=== PATIENT | female | born 1940 | race Caucasian/White ===

== ENCOUNTER 2017-12-31 14:30 | Inpatient (IN) | payer MEDICARE ==
[~2017-12-31] VITALS: Ht 152.4 cm; Wt 63.0 kg
[2017-12-31 15:35] LABS: BASOPHILS % (AUTO) 0.7 % (0.0-5.0); EOSINOPHILS % (AUTO) 3.2 % (0.0-8.0); LYMPHOCYTES % (AUTO) 22.4 % (21.0-51.0); MEAN CORPUSCULAR HGB CONC 33.7 g/dL (32.0-36.0); MEAN CORPUSCULAR VOLUME 89.1 fL (79-99); NEUTROPHILS % (AUTO) 64.7 % (40.0-77.0); PLATELET COUNT (AUTO) 316 K/uL (130-400); RED BLOOD CELL COUNT(AUTO) 3.26 MIL/uL (4.00-5.50); RED CELL DISTRIBUTION WIDTH 11.9 % (11.0-15.5); WHITE BLOOD COUNT (AUTO) 4.6 K/uL (4.8-10.8)
[2017-12-31 15:57] VITALS: BP 155/76
[2017-12-31 16:00] LABS: POTASSIUM 3.8 mmol/L (3.5-5.1)
[2017-12-31] MEDS ORDERED: CHOL400T4 PO (16:33)
[2017-12-31] MEDS ORDERED: FOLI1TAB15 PO (16:33)
[2017-12-31] MEDS ORDERED: FLUTICASONE NASAL (16:33)
[2017-12-31] MEDS ORDERED: IRBE150T27 PO (16:33)
[2017-12-31] MEDS ORDERED: OMEP40CA37 PO (16:33)
[2017-12-31] MEDS ORDERED: ALEN70TA47 PO (16:33)
[2017-12-31] MEDS ORDERED: ESTR0.755 PO (16:33)
[2017-12-31] MEDS ORDERED: FURO-152 PO (16:33)
[2017-12-31] MEDS ORDERED: CETI-101 PO (16:33)
[2017-12-31] MEDS ORDERED: [UNRECOGNIZED DRUG - MIXTURE] PO (16:33)
[2017-12-31] MEDS ORDERED: HYDR-3421 PO (16:33)
[2017-12-31] MEDS ORDERED: CEVI30CA7 PO (16:33)
[2017-12-31] MEDS ORDERED: FERS325 PO (16:33)
[2017-12-31] MEDS ORDERED: POLY17PO4 PO (16:33)
[2017-12-31] MEDS ORDERED: LEVO150T11 PO (16:33)
[2017-12-31] MEDS ORDERED: PENT1TAB3 PO (16:33)
[2018-01-01] MEDS: CEFAZOLIN SODIUM 1 GM VIAL IVP SCH (16:45)
[2018-01-02] MEDS: CEFAZOLIN SODIUM 1 GM VIAL IVP SCH (16:45)
[2018-01-03] VITALS (22 sets, daily range): BP systolic 119–153; BP diastolic 45–83
[2018-01-03] MEDS ORDERED: LIDOCAINE PF 2% 5ML ABBOJECT ONE (06:53)
[2018-01-03] MEDS ORDERED: PROPOFOL 10 MG/ML 20ML VIAL IV ONE ×2 (06:53→08:25)
[2018-01-03] MEDS ORDERED: FENTANYL CITRATE PF 50 MCG/1 ML 2ML VIAL ONE (06:54)
[2018-01-03] MEDS ORDERED: ONDANSETRON HCL 4 MG/2 ML VIAL ONE (06:54)
[2018-01-03] MEDS ORDERED: EPHEDRINE SULFATE 50 MG/ML AMPULE ONE (06:55)
[2018-01-03] MEDS ORDERED: ROCURONIUM 10MG/1ML SYR 10 MG/ML ML ONE (06:57)
[2018-01-03] MEDS ORDERED: FAMOTIDINE/PF 20 MG/2 ML VIAL IV ONE (07:05)
[2018-01-03] MEDS: CEFAZOLIN SODIUM 1 GM VIAL IVP SCH ×4 (07:30→23:41)
[2018-01-03] MEDS ORDERED: LACTATED RINGERS 1000ML 1,000 ML IV ONE (07:45)
[2018-01-03] MEDS ORDERED: CEFAZOLIN SODIUM 1 GM VIAL ONE (07:53)
[2018-01-03] MEDS ORDERED: ALBUMIN (HUMAN) 5% 250 ML IV ONE (08:04)
[2018-01-03] MEDS ORDERED: VASOPRESSIN 20 UNITS/ML 1ML VIAL ONE (08:04)
[2018-01-03] MEDS ORDERED: KETAMINE 50MG/ML SYRINGE 50 MG/ML DISP.SYRIN IV ONE (08:04)
[2018-01-03] MEDS ORDERED: BUPIVACAINE/PF 0.25% 50ML VIAL IJ ONE (09:02)
[2018-01-03] MEDS ORDERED: GLYCOPYRROLATE 1 MG/5 ML SYRINGE ONE (09:08)
[2018-01-03] MEDS: ACETAMINOPHEN EXTRA STRENGTH 500 MG TABLET PO SCH ×2 (09:30→17:24)
[2018-01-03] MEDS ORDERED: POTASSIUM CHLORIDE 20 MEQ ERTAB PO PRN (09:30)
[2018-01-03] MEDS ORDERED: DIPHENHYDRAMINE HCL 25 MG CAPSULE PO PRN (09:30)
[2018-01-03] MEDS ORDERED: POTASSIUM CHLORIDE 10% ELIXIR 20 MEQ/15 ML UDCUP PO PRN (09:30)
[2018-01-03] MEDS ORDERED: FERROUS FUMARATE 324 MG TABLET PO PRN (09:30)
[2018-01-03] MEDS ORDERED: POTASSIUM CHLORIDE 20MEQ/100ML 100 ML IV PRN (09:30)
[2018-01-03] MEDS ORDERED: TEMAZEPAM 15 MG CAPSULE PO PRN (09:30)
[2018-01-03] MEDS ORDERED: CALCIUM CARBONATE 500 MG TABLET PO PRN (09:30)
[2018-01-03] MEDS ORDERED: LIDOCAINE HCL-MPF 1% 2ML VIAL IVP PRN (09:30)
[2018-01-03] MEDS ORDERED: DiphenhydrAMINE HCL 50 MG/ML VIAL IVP PRN (09:30)
[2018-01-03] MEDS ORDERED: TRAMADOL HCL 50 MG TABLET PO PRN (09:30)
[2018-01-03] MEDS ORDERED: FLUTICASONE 50 MCG NASAL SCH (11:00)
[2018-01-03] MEDS ORDERED: NALOXONE HCL PO SCH (11:00)
[2018-01-03] MEDS ORDERED: HYDROXYZINE HCL 25 MG TABLET PO SCH (11:00)
[2018-01-03] MEDS ORDERED: PENTAZOCINE HCL PO SCH (11:00)
[2018-01-03] MEDS: PSYLLIUM SEED 1 EACH PACKET PO SCH (11:40)
[2018-01-03] MEDS: SODIUM CHLORIDE 0.9% 1000ML 1,000 ML IV SCH ×2 (11:40→20:14)
[2018-01-03] MEDS: KETOROLAC TROMETHAMINE 15MG/ML IV PRN ×2 (12:27→19:30)
[2018-01-03] MEDS: FERROUS SULFATE 325 MG TABLET.DR PO SCH (20:14)
[2018-01-03] MEDS ORDERED: ESTROPIPATE 0.75 MG PO SCH (21:00)
[2018-01-03] MEDS ORDERED: CEVIMELINE HCL 30 MG PO SCH (21:00)
[2018-01-03] MEDS ORDERED: NON-FORMULARY MEDICATION 1 EACH (Cetirizine HCl (Zyrtec) 10 MG) PO SCH (21:00)
[2018-01-04] MEDS: ACETAMINOPHEN EXTRA STRENGTH 500 MG TABLET PO SCH ×3 (02:06→18:24)
[2018-01-04 03:22] VITALS: BP 121/49
[2018-01-04] MEDS: SODIUM CHLORIDE 0.9% 1000ML 1,000 ML IV SCH (05:14)
[2018-01-04] MEDS: KETOROLAC TROMETHAMINE 15MG/ML IV PRN ×2 (06:17→13:04)
[2018-01-04] MEDS ORDERED: LEVOTHYROXINE 150 MCG TABLET PO SCH (06:30)
[2018-01-04] MEDS: FERROUS SULFATE 325 MG TABLET.DR PO SCH (07:56)
[2018-01-04 07:59] VITALS: BP 129/52
[2018-01-04] MEDS ORDERED: ENOXAPARIN SODIUM 40 MG/0.4 ML SYRINGE SQ SCH (09:00)
[2018-01-04] MEDS ORDERED: LOSARTAN 50 MG TABLET PO SCH (09:00)
[2018-01-04] MEDS ORDERED: POLYETHYLENE GLYCOL 3350 17 GM POWD.PACK PO SCH ×2 (09:00)
[2018-01-04] MEDS ORDERED: PANTOPRAZOLE SODIUM 40 MG TABLET.DR PO SCH (09:00)
[2018-01-04] MEDS ORDERED: FOLIC ACID 1 MG TABLET PO SCH (09:00)
[2018-01-04] MEDS ORDERED: FAMOTIDINE 20MG TAB 20 MG TAB PO SCH (09:00)
[2018-01-04] MEDS ORDERED: FUROSEMIDE 20 MG TABLET PO SCH (09:00)
[2018-01-04] MEDS ORDERED: CHOLECALCIFEROL 400 UNIT PO SCH (09:00)
[2018-01-04 11:41] VITALS: BP 128/57
[2018-01-04] MEDS: PSYLLIUM SEED 1 EACH PACKET PO SCH (12:43)
[2018-01-04 16:36] VITALS: BP 121/53
[2018-01-05] MEDS ORDERED: BISACODYL 5 MG TABLET.DR PO PRN (09:30)
[2018-01-06] MEDS ORDERED: BISACODYL 10 MG SUPP.RECT RC PRN (09:30)
[2018-01-10] MEDS ORDERED: ALENDRONATE SODIUM 35 MG TAB PO SCH (09:00)
== END 2018-01-04 20:00 | disposition home or self-care (01) | DRG 501 ==
LOC: EDSTATUS 14:30 → DAHIP 01-03 06:18 → 4AH 01-03 10:17
PROVIDERS: ADMIT Orthopaedic Surgery; ATTEND Orthopaedic Surgery
PROC: 0KCS0ZZ Extirpation of Matter from Right Lower Leg Muscle, Open Approach (ICD-10-PCS; principal; 2018-01-03 08:57)
DX: M79.81 Nontraumatic hematoma of soft tissue (principal); N18.4 Chronic kidney disease, stage 4 (severe); I10 Essential (primary) hypertension; E03.9 Hypothyroidism, unspecified; M06.9 Rheumatoid arthritis, unspecified; M19.90 Unspecified osteoarthritis, unspecified site; I73.9 Peripheral vascular disease, unspecified; Z88.1 Allergy status to other antibiotic agents; Z88.5 Allergy status to narcotic agent; Z88.8 Allergy status to other drugs, medicaments and biological substances; Z80.9 Family history of malignant neoplasm, unspecified
CPT/HCPCS: 36415; 80048; 85025; 93005; 97039; A4218; J0690; J1650; J1885; J2001; J2405; J2704; J3010; J3490; J7030; J7120; P9045

== ENCOUNTER → 2019-10-20 | Outpatient (CLI) | payer MEDICARE ==
[~2019-10-20] MED LIST: AMLO10TA7 PO; ASPI-1005 PO; CETI-109 PO; CEVI30CA7 PO; CHOL400T4 PO; DENO60DI SQ; ESTR0.755 PO; FERS325 PO; FLUTICASONE NASAL; FOLI1TAB15 PO; FURO20TA4 PO; HYDR-3421 PO; HYDR-4457 PO; IRBE150T24 PO; LEVO125 PO; OMEP40CA13 PO; PENT1TAB3 PO; POLY17PO4 PO; [UNRECOGNIZED DRUG - MIXTURE] PO; [UNRECOGNIZED DRUG - OTHER] PO
== END ==
LOC: DAH 10:00 → EDSTATUS 10-26 08:30 → DAH 10-26 10:00
PROVIDERS: ATTEND Internal Medicine Gastroenterology
DX: Z01.818 Encounter for other preprocedural examination (principal); Z11.59 Encounter for screening for other viral diseases; D50.0 Iron deficiency anemia secondary to blood loss (chronic); D53.9 Nutritional anemia, unspecified
CPT/HCPCS: 36415; U0003

== ENCOUNTER 2020-04-03 09:00 | Inpatient (IN) | payer MEDICARE ==
[~2020-04-03] VITALS: Ht 152.4 cm; Wt 59.7 kg
[~2020-04-03 09:00] MED LIST changes: +AMLO-258 PO; -AMLO10TA7 PO; -ASPI-1005 PO; -CETI-109 PO; -CHOL400T4 PO; -ESTR0.755 PO; -FLUTICASONE NASAL; -FURO20TA4 PO; -HYDR-3421 PO; -HYDR-4457 PO; -[UNRECOGNIZED DRUG - MIXTURE] PO; -[UNRECOGNIZED DRUG - OTHER] PO
[2020-04-03 10:51] LABS: BASOPHILS % (AUTO) 0.6 % (0.0-5.0); EOSINOPHILS % (AUTO) 2.1 % (0.0-8.0); HEMATOCRIT 32.4 % (36-48); LYMPHOCYTES % (AUTO) 12.3 % (21.0-51.0); MEAN CORPUSCULAR HEMOGLOBIN 30.3 pg (27.0-33.0); MEAN CORPUSCULAR HGB CONC 32.4 g/dL (32.0-36.0); MEAN CORPUSCULAR VOLUME 93.6 fL (79-99); MONOCYTES % (AUTO) 8.4 % (3.0-13.0); NEUTROPHILS % (AUTO) 76.2 % (40.0-77.0); PLATELET COUNT (AUTO) 245 K/uL (130-400); RED BLOOD CELL COUNT(AUTO) 3.46 MIL/uL (4.00-5.50); RED CELL DISTRIBUTION WIDTH 12.9 % (11.0-15.5); WHITE BLOOD COUNT (AUTO) 4.8 K/uL (4.8-10.8)
[2020-04-03 11:14] LABS: APPEARANCE,URINE Clear (CLEAR); BILIRUBIN,URINE Negative (NEGATIVE); COLOR,URINE Yellow (YELLOW); GLUCOSE, URINE (UA) Negative (NEGATIVE); KETONES,URINE Negative (NEGATIVE); LEUKOCYTE ESTERASE ,URINE Negative (NEGATIVE); NITRATE,URINE Negative (NEGATIVE); OCCULT BLOOD,URINE Negative (NEGATIVE); PH,URINE 7.5 (5.0-8.0); PROTEIN,URINE Trace mg/dL (NEGATIVE); UROBILINOGEN,URINE 0.2 mg/dL (0.2-1.0)
[2020-04-03 11:29] LABS: POTASSIUM 4.9 mmol/L (3.5-5.1)
[2020-04-03 11:49] LABS: INR 0.91 (0.85-1.15); PROTHROMBIN TIME 9.9 SEC (9.6-11.6)
[2020-04-03 12:14] LABS: BACTERIA,URINE Rare /HPF (None Seen); RBC,URINE None Seen /HPF (0-1); WBC,URINE None Seen /HPF (0-1)
[2020-04-09 15:09] VITALS: BP 170/58
[2020-04-09] MEDS ORDERED: VITAMIN D3 PO (15:50)
[2020-04-09] MEDS ORDERED: DYAZIDE GT (15:50)
[2020-04-09] MEDS ORDERED: LEVO5TAB13 PO (15:50)
[2020-04-09] MEDS ORDERED: ESTR0.5T PO (15:50)
[2020-04-09] MEDS ORDERED: PENTOXIFYLLINE PO (15:50)
[2020-04-09] MEDS ORDERED: FLUT16H NASAL (15:50)
[2020-04-10] VITALS (29 sets, daily range): BP systolic 112–156; BP diastolic 50–64
[2020-04-10] MEDS ORDERED: TRANEXAMIC ACID 1000MG/10ML ONE ×2 (07:48→12:36)
[2020-04-10] MEDS ORDERED: CEFAZOLIN SODIUM 1 GM VIAL ONE ×2 (07:48→15:53)
[2020-04-10] MEDS ORDERED: FENTANYL CITRATE PF 50 MCG/1 ML 2ML VIAL ONE (08:02)
[2020-04-10] MEDS ORDERED: ONDANSETRON HCL 4 MG/2 ML VIAL ONE (08:02)
[2020-04-10] MEDS ORDERED: MIDAZOLAM HCL 1 MG/ML 2ML VIAL ONE ×2 (08:02→12:28)
[2020-04-10] MEDS ORDERED: DEXAMETHASONE SOD PHOSPHATE 10MG/ML 1ML VIAL ONE (08:02)
[2020-04-10] MEDS ORDERED: LIDOCAINE PF 2% 5ML ABBOJECT ONE (08:02)
[2020-04-10] MEDS ORDERED: PROPOFOL 10 MG/ML 20ML VIAL IV ONE (08:02)
[2020-04-10] MEDS ORDERED: ROCURONIUM 10MG/1ML SYR 10 MG/ML ML ONE ×2 (08:03→10:47)
[2020-04-10] MEDS ORDERED: LACTATED RINGERS 1000ML 1,000 ML IV ONE (08:04)
[2020-04-10] MEDS ORDERED: ROPIVACAINE 0.5% 5MG/ML 30ML IJ ONE (08:10)
[2020-04-10] MEDS: CEFAZOLIN SODIUM 1 GM VIAL IVP SCH ×3 (08:30→15:54)
[2020-04-10] MEDS ORDERED: CEFAZOLIN SODIUM 1 GM VIAL IRRIG ONE (09:57)
[2020-04-10] MEDS ORDERED: EPHEDRINE SULFATE 50 MG/ML AMPULE ONE (11:44)
[2020-04-10] MEDS ORDERED: LIDOCAINE HCL-MPF 1% 2ML VIAL IV PRN (12:00)
[2020-04-10] MEDS ORDERED: OXYCODONE HCL 5 MG TAB PO PRN (12:00)
[2020-04-10] MEDS ORDERED: POTASSIUM CHLORIDE 20 MEQ ERTAB PO PRN (12:00)
[2020-04-10] MEDS ORDERED: TRAMADOL HCL 50 MG TABLET PO PRN (12:00)
[2020-04-10] MEDS ORDERED: ONDANSETRON HCL 4 MG/2 ML VIAL IVP PRN (12:00)
[2020-04-10] MEDS: ACETAMINOPHEN EXTRA STRENGTH 500 MG TABLET PO SCH ×2 (12:00→21:09)
[2020-04-10] MEDS ORDERED: CALCIUM CARBONATE 500 MG TABLET PO PRN (12:00)
[2020-04-10] MEDS ORDERED: POTASSIUM CHLORIDE 10% ELIXIR 20 MEQ/15 ML UDCUP PO PRN (12:00)
[2020-04-10] MEDS ORDERED: POTASSIUM CHLORIDE 20MEQ/100ML 100 ML IV PRN (12:00)
[2020-04-10] MEDS ORDERED: DiphenhydrAMINE HCL 50 MG/ML VIAL IVP PRN (12:00)
[2020-04-10] MEDS ORDERED: NEOSTIGMINE 5MG/5ML SYR IV ONE (12:07)
[2020-04-10] MEDS ORDERED: GLYCOPYRROLATE 1 MG/5 ML SYRINGE ONE (12:07)
[2020-04-10] MEDS ORDERED: PHARMACY COMMUNICATION MISC SCH (13:00)
[2020-04-10] MEDS: SODIUM CHLORIDE 0.9% 1000ML 1,000 ML IV SCH ×2 (14:40→22:00)
[2020-04-10] MEDS ORDERED: NON-FORMULARY MEDICATION 1 EACH (Denosumab (Prolia) 60 MG) SQ SCH (15:00)
[2020-04-10] MEDS ORDERED: NALOXONE HCL PO SCH (15:30)
[2020-04-10] MEDS ORDERED: PENTAZOCINE HCL PO SCH (15:30)
[2020-04-10] MEDS ORDERED: NON-FORMULARY MEDICATION 1 EACH (Ferrous Sulfate 325 MG) PO SCH (21:00)
[2020-04-10] MEDS ORDERED: CEVIMELINE HCL 30 MG PO SCH (21:00)
[2020-04-10] MEDS: FLUTICASONE PROPIONATE 50MCG/SPRAY 16 GM BOTTLE NS SCH (21:00)
[2020-04-10] MEDS ORDERED: NON-FORMULARY MEDICATION 1 EACH (Amlodipine Besylate 10 MG) PO SCH (21:00)
[2020-04-10] MEDS ORDERED: PENTOXIFYLLINE PO SCH (21:00)
[2020-04-10] MEDS ORDERED: PREGABALIN 25 MG CAP PO SCH (21:00)
[2020-04-10] MEDS: CEVIMELINE 30 MG PO SCH (21:00)
[2020-04-10] MEDS ORDERED: NON-FORMULARY MEDICATION 1 EACH (Levocetirizine Dihydrochloride 5 MG) PO SCH (21:00)
[2020-04-10] MEDS: LEVOCETIRIZINE 5MG PO SCH (21:00)
[2020-04-10] MEDS: ESTRADIOL 0.5 MG TABLET PO SCH (21:08)
[2020-04-10] MEDS: PENTOXIFYLLINE 400 MG TABLET.SA PO SCH (21:08)
[2020-04-10] MEDS: FERROUS SULFATE 325 MG TABLET.DR PO SCH (21:08)
[2020-04-10] MEDS: CELECOXIB 200 MG CAP PO SCH (21:08)
[2020-04-10] MEDS: AMLODIPINE BESYLATE 5 MG TAB PO SCH (21:09)
[2020-04-10] MEDS: OXYCODONE HCL 5 MG TAB PO PRN (21:20)
[2020-04-11] MEDS: CEFAZOLIN SODIUM 1 GM VIAL IVP SCH (00:04)
[2020-04-11] MEDS: OXYCODONE HCL 5 MG TAB PO PRN ×4 (02:11→22:56)
[2020-04-11 03:47] LABS: HEMATOCRIT 22.8 % (36-48); MEAN CORPUSCULAR HGB CONC 32.9 g/dL (32.0-36.0); MEAN CORPUSCULAR VOLUME 91.2 fL (79-99); RED BLOOD CELL COUNT(AUTO) 2.5 MIL/uL (4.00-5.50); RED CELL DISTRIBUTION WIDTH 12.6 % (11.0-15.5); WHITE BLOOD COUNT (AUTO) 7.3 K/uL (4.8-10.8)
[2020-04-11 03:56] LABS: CREATININE 2.1 mg/dL (0.5-1.5); POTASSIUM 4.1 mmol/L (3.5-5.1)
[2020-04-11] MEDS: ACETAMINOPHEN EXTRA STRENGTH 500 MG TABLET PO SCH ×3 (04:00→21:14)
[2020-04-11 04:21] VITALS: BP 126/54
[2020-04-11] MEDS: LEVOTHYROXINE 125 MCG TABLET PO SCH (07:12)
[2020-04-11 07:30] VITALS: BP 130/49
[2020-04-11] MEDS: SODIUM CHLORIDE 0.9% 1000ML 1,000 ML IV SCH (08:00)
[2020-04-11] MEDS ORDERED: VITAMIN D3 2000 MG PO SCH (09:00)
[2020-04-11] MEDS: FLUTICASONE PROPIONATE 50MCG/SPRAY 16 GM BOTTLE NS SCH ×2 (09:00→21:00)
[2020-04-11] MEDS ORDERED: NON-FORMULARY MEDICATION 1 EACH (Omeprazole 40 MG) PO SCH (09:00)
[2020-04-11] MEDS: POLYETHYLENE GLYCOL 3350 17 GM POWD.PACK PO SCH ×2 (09:00→10:14)
[2020-04-11] MEDS ORDERED: IRBESARTAN 150 MG PO SCH (09:00)
[2020-04-11] MEDS: VITAMIN D3 2000 UNITS PO SCH (09:00)
[2020-04-11] MEDS: TRIAMTEREN/HCTZ 37.5/25 MG 1 TAB TAB GT SCH (10:13)
[2020-04-11] MEDS: LOSARTAN 50 MG TABLET PO SCH (10:13)
[2020-04-11] MEDS: FERROUS SULFATE 325 MG TABLET.DR PO SCH ×2 (10:13→21:13)
[2020-04-11] MEDS: CELECOXIB 200 MG CAP PO SCH ×2 (10:13→21:13)
[2020-04-11] MEDS: PANTOPRAZOLE SODIUM 40 MG TABLET.DR PO SCH (10:14)
[2020-04-11] MEDS: PENTOXIFYLLINE 400 MG TABLET.SA PO SCH ×2 (10:14→21:14)
[2020-04-11] MEDS: FOLIC ACID 1 MG TABLET PO SCH (10:14)
[2020-04-11 11:00] VITALS: BP 129/52
[2020-04-11 16:00] VITALS: BP 128/53
[2020-04-11 19:51] VITALS: BP 141/53
[2020-04-11] MEDS: CEVIMELINE 30 MG PO SCH (21:00)
[2020-04-11] MEDS: LEVOCETIRIZINE 5MG PO SCH (21:00)
[2020-04-11] MEDS: AMLODIPINE BESYLATE 5 MG TAB PO SCH (21:13)
[2020-04-11] MEDS: ESTRADIOL 0.5 MG TABLET PO SCH (21:14)
[2020-04-11 23:43] VITALS: BP 131/78
[2020-04-12 04:00] VITALS: BP 130/44
[2020-04-12] MEDS: LEVOTHYROXINE 125 MCG TABLET PO SCH (06:02)
[2020-04-12] MEDS: ACETAMINOPHEN EXTRA STRENGTH 500 MG TABLET PO SCH ×2 (06:03→13:37)
[2020-04-12 08:00] VITALS: BP 136/54
[2020-04-12 08:17] LABS: HEMATOCRIT 26.2 % (36-48)
[2020-04-12] MEDS: VITAMIN D3 2000 UNITS PO SCH (08:49)
[2020-04-12] MEDS: CELECOXIB 200 MG CAP PO SCH (08:50)
[2020-04-12] MEDS: POLYETHYLENE GLYCOL 3350 17 GM POWD.PACK PO SCH ×2 (08:50→09:00)
[2020-04-12] MEDS: FERROUS SULFATE 325 MG TABLET.DR PO SCH (08:50)
[2020-04-12] MEDS: FOLIC ACID 1 MG TABLET PO SCH (08:50)
[2020-04-12] MEDS: TRIAMTEREN/HCTZ 37.5/25 MG 1 TAB TAB GT SCH (08:50)
[2020-04-12] MEDS: PENTOXIFYLLINE 400 MG TABLET.SA PO SCH (08:50)
[2020-04-12] MEDS: PANTOPRAZOLE SODIUM 40 MG TABLET.DR PO SCH (08:50)
[2020-04-12] MEDS: LOSARTAN 50 MG TABLET PO SCH (08:51)
[2020-04-12] MEDS: FLUTICASONE PROPIONATE 50MCG/SPRAY 16 GM BOTTLE NS SCH (08:53)
[2020-04-12] MEDS ORDERED: HYDR-4457 PO (10:40)
[2020-04-12 11:52] VITALS: BP 147/60
[2020-04-13] MEDS ORDERED: BISACODYL 10 MG SUPP.RECT RC PRN (12:00)
== END 2020-04-12 16:00 | disposition home health service (06) | DRG 483 ==
LOC: EDSTATUS 09:00 → DAHIP 04-10 06:33 → 3BH 04-10 13:55
PROVIDERS: ADMIT Orthopaedic Surgery; ATTEND Orthopaedic Surgery
PROC: 0RRJ00Z Replacement of Right Shoulder Joint with Reverse Ball and Socket Synthetic Substitute, Open Approach (ICD-10-PCS; principal; 2020-04-10 08:50)
PROC: 30233N1 Transfusion of Nonautologous Red Blood Cells into Peripheral Vein, Percutaneous Approach (ICD-10-PCS; 2020-04-11)
DX: M19.011 Primary osteoarthritis, right shoulder (principal); D62 Acute posthemorrhagic anemia; E03.9 Hypothyroidism, unspecified; G89.29 Other chronic pain; Z20.828 Contact with and (suspected) exposure to other viral communicable diseases; Z96.653 Presence of artificial knee joint, bilateral; M75.101 Unspecified rotator cuff tear or rupture of right shoulder, not specified as traumatic; M06.9 Rheumatoid arthritis, unspecified; I12.9 Hypertensive chronic kidney disease with stage 1 through stage 4 chronic kidney disease, or unspecified chronic kidney disease; N18.30 Chronic kidney disease, stage 3 unspecified; Z80.9 Family history of malignant neoplasm, unspecified; Z88.5 Allergy status to narcotic agent; Z88.2 Allergy status to sulfonamides; Z88.8 Allergy status to other drugs, medicaments and biological substances
CPT/HCPCS: 36415; 36430; 73030; 80048; 81001; 85014; 85018; 85025; 85027; 85610; 86850; 86900; 86901; 86923; 87641; A4565; G0378; J0690; J1100; J2001; J2250; J2405; J2704; J2710; J2795; J3010; J3490; J7030; J7120; P9016; U0003